=== PATIENT | male | born 1945 | race Caucasian/White ===

== ENCOUNTER → 2016-09-13 | Outpatient (CLI) | payer OTHER ==
[2016-09-13 15:53] LABS: CH 30.1; CHCM 33.3; HCT 44.8 % (39.0-53.0); HDW 2.58; HGB 14.9 gm/dL (13.0-17.5); MCH 30.2 pg (25.0-35.0); MCHC 33.2 g/dL (31.0-37.0); MCV 90.8 fL (80.0-100.0); RBC 4.94 m/uL (4.30-5.90); RDW 14.5 % (11.5-15.5); WBC 6.9 k/uL (3.8-10.6)
[2016-09-13 15:56] LABS: Appearance,Urine Clear (Clear); Bilirubin,Urine Negative (Negative); Glucose,Urine (UA) Negative (Negative); Ketones,Urine Negative (Negative); Leukocyte Esterase,Urine Negative (Negative); Nitrite,Urine Negative (Negative); PH, Urine 6.5 (5.0-8.0); Protein,Urine Negative (Negative); Specific Gravity,Urine 1.007 (1.001-1.035); UA Billing (MACRO vs. MICRO) CHEM; Urobilinogen,Urine <2.0 mg/dL (<2.0)
[2016-09-13 16:02] LABS: ALT 33 U/L (21-72); AST 19 U/L (17-59); Alkaline Phosphatase 97 U/L (38-126); Anion Gap 12 mmol/L; Blood Urea Nitrogen 21 mg/dL (9-20); Calcium 9.4 mg/dL (8.4-10.2); Carbon Dioxide 25 mmol/L (22-30); Chloride 103 mmol/L (98-107); Glucose 197 mg/dL (74-99); Non-African American GFR(MDRD) >60 (>60 ml/min/1.73 sqM); Potassium 4.1 mmol/L (3.5-5.1); Sodium 140 mmol/L (137-145); Total Bilirubin 1.5 mg/dL (0.2-1.3); Total Protein 6.8 g/dL (6.3-8.2)
[2016-09-13 16:03] LABS: Prothrombin Time 19.3 sec (9.0-12.0)
== END | disposition home or self-care (01) ==
LOC: LABPAT 14:56
PROVIDERS: ATTEND Orthopaedic Surgery
DX: Z01.810 Encounter for preprocedural cardiovascular examination (principal); Z01.812 Encounter for preprocedural laboratory examination; Z79.01 Long term (current) use of anticoagulants
CPT/HCPCS: 80053; 81003; 85027; 85610; 85730; 87070

== ENCOUNTER 2016-09-19 06:07 | Inpatient (IN) | payer OTHER ==
[2016-09-12 16:26] VITALS: BMI 34.8
[~2016-09-19 06:07] MED LIST: ACETAMINOPHEN TAB 500 MG TAB PO ONE; LIDOCAINE 1% 20 ML VIAL (10MG/ML) FOR IV START INTRADERMA PRN; MELOXICAM 7.5 MG TAB PO ONE; ONDANSETRON 4 MG/2 ML VIAL IVP ONE; TRANEXAMIC ACID 1,000 MG in SODIUM CHLORIDE 0.9% 100 ML IVPB ONE
[2016-09-19] MEDS: LACTATED RINGERS 1,000 ML IV SCH (07:02)
[2016-09-19 07:17] LABS: Glucose,Whole Blood 110 mg/dL (75-99)
[2016-09-19 07:25] LABS: INR 1.2 (<1.2); Prothrombin Time 11.9 sec (9.0-12.0)
[2016-09-19] MEDS ORDERED: SODIUM CHLORIDE 0.9% 100 ML BAG ONE (07:34)
[2016-09-19] MEDS: ceFAZolin 2 GM in SODIUM CHLORIDE 0.9% 100 ML IVPB ONE ×2 (07:34→07:45)
[2016-09-19] MEDS ORDERED: MIDAZOLAM 2 MG/2 ML VIAL ONE (07:34)
[2016-09-19] MEDS ORDERED: TRANEXAMIC ACID 1,000 MG/10 ML VIAL ONE (07:34)
[2016-09-19] MEDS ORDERED: ROCURONIUM BROMIDE 10 MG/ML 10 ML VIAL IV ONE (07:34)
[2016-09-19] MEDS ORDERED: fentaNYL (PF) 50 MCG/ML 2 ML AMP ONE (07:34)
[2016-09-19] MEDS ORDERED: SUCCINYLCHOLINE CHLORIDE 100 MG/5 ML SYR IV ONE (07:34)
[2016-09-19] MEDS ORDERED: PROPOFOL 10 MG/ML 20 ML VIAL IV ONE (07:34)
[2016-09-19] MEDS ORDERED: GLYCOPYRROLATE 0.2 MG/ML 2 ML VIAL ONE (07:34)
[2016-09-19] MEDS ORDERED: NEOSTIGMINE 1 MG/ML 10 ML VIAL ONE (07:34)
[2016-09-19] MEDS ORDERED: ceFAZolin 3,000 MG in SODIUM CHLORIDE 0.9% IRRIGATIO 3,000 ML IRRIGATION ONE (08:14)
[2016-09-19] MEDS: ROPIVACAINE 246.25 MG, EPINEPHrine 0.5 MG, KETOROLAC 30 MG, cloNIDine HCL/PF 80 MCG, WA... MISCELLANE ONE ×10 (08:15→09:27)
--- NOTE | 2016-09-19 09:30 | XR ---
FLUOROSCOPY 42 seconds of fluoroscopy time were utilized during right anterior hip replacement. 2 images document the procedure.
--- NOTE | 2016-09-19 09:32 | P.OP ---
Date of Procedure: 09/19/16 Preoperative Diagnosis: Severe osteoarthritis right hip Postoperative Diagnosis: Severe osteoarthritis right hip Procedure(s) Performed: Right total hip arthroplasty with a direct anterior approach Implants: Barraza and nephew Polarstem size 2 standard Barraza [employer] Nephew R3, 3 hole acetabular shell, 54 mm Barraza [employer] Nephew reflection 6.5 mm cancellus screw, 20 mm 2 [employer]raza [employer]hew R3, XLPE 20 acetabular liner Barraza [employer] Nephew Oxinium femoral head 36 m, +0 All components were press-fit. The articulation is ceramic on polyethylene. Anesthesia: GETA Surgeon: Pavan Tabares [employer] #1: Shakira Burnett Estimated Blood Loss (ml): 250 (125 mL returned with Cell Saver) Pathology: other (Femoral head) Condition: stable Disposition: PACU Indications for Procedure: After failure of conservative treatment we discussed the surgical and nonsurgical treatment options at length. Patient wishes to proceed with a total hip arthroplasty with a direct anterior approach. Complications specific to this procedure were discussed at length, including but not limited to infection, leg length discrepancy, dislocation, and nerve injury. Patient is aware of all these complications and informed consent was obtained Operative Findings: The operative findings are consistent with severe osteoarthritis of the right hip Description of Procedure: Patient was seen and evaluated in the preoperative area, consent was reviewed, and the surgical site was marked with a skin marker. Patient was then brought to the operating room and given prophylactic antibiotics intravenously. 1 g of Tranexamic acid was also given. A general anesthetic was administered by the anesthesia department. The patient was then placed on the Benedicta table with the bony prominences well-padded. The hip area was then prepped and draped in usual sterile fashion. A universal timeout was then performed, which confirmed the patient's name, surgical site, ALLERGIES, and procedure being performed. Next the incision site was located at 1 cm distal and 1 cm lateral to the anterior superior iliac spine. The skin and subcutaneous tissues were sharply incised. Incision was carefully dissected down to the fascia overlying the tensor fascia tera muscle. This fascia was then incised in line with the incision. Next, using blunt finger dissection, the tensor fascia tera muscle was dissected off its investing fascia. The muscle was then carefully retracted laterally with a cobra retractor over the lateral neck of the femur. Next, the circumflex vessels were identified and cauterized using the AquaMantis device. The anterior hip capsule was then exposed. The capsule was then opened and an inverted T fashion. Cobra retractors were then placed intracapsularly. The proximal femur was then visualized. The femoral neck was then osteotomized appropriate level above the lesser trochanter. Small amount of traction was placed with the Benedicta table. A small wedge of bone was then removed from the remaining femoral head. Next, using a corkscrew femoral head was easily removed from the acetabulum. On gross visual inspection, the femoral head had complete loss of articular cartilage in multiple periarticular osteophytes. Attention was then turned to the acetabulum. the acetabulum was exposed and any remaining labrum was excised. Sequential reaming of the acetabulum was performed using fluoroscopic guidance. When the appropriate size was reached, a trial was then placed. The position and fit of the trial was checked with fluoroscopy. The trial was then removed. Then, using fluoroscopic guidance, the final implant was impacted at 20 of anteversion and 40 of abduction, and fully seated in the acetabulum. 2 screws were then placed in the acetabulum. Again fluoroscopy was used to check position of the screws. Next, the liner was then impacted, with a 20 elevated liner located in the anterior superior quadrant. Component locking was confirmed. Attention was then directed to the femur. With the aid of the Benedicta table, the femur was externally rotated to approximately 130, extended, and abducted under the opposite leg. A side hook was then placed under the proximal femur, and the side hook elevator was used to elevate the proximal femur. Retractors were then placed. A capsular release was performed, as well as a release of the conjoined tendon, which afforded excellent visualization of the proximal femur. Next, a box osteotome was used to lateralize the proximal femur. A production hand was then used to locate the femoral canal. Sequential broaching was then performed with appropriate size which afforded excellent fixation in the proximal femur. A trial was then placed with appropriate head and neck, and the hip was gently reduced with the aid of the Benedicta table. Fluoroscopy was then used to check position of the components, as well as to ensure equal leg lengths. The hip was then gently dislocated and the trials were then removed. Final implants were then impacted and the hip was again reduced. Final fluoroscopic x-rays confirmed that the components were in anatomic position, as well as equal leg lengths. The hip was also taken through range of motion, and found to be stable. The hip was then copiously irrigated with antibiotic solution with pulsatile lavage. The hip was then irrigated with Irrisept solution. The soft tissues were then injected with a ropivacaine solution, which consisted of 246.25 mg of ropivacaine, 0.5 mg of epinephrine, 30 mg of Toradol, 80 g of clonidine, and 48.45 mL of sterile water, for a total of 100 mL of fluid injected. A second dose of 1 g of Tranexamic acid was also given. the fascia was then closed with 2-0 strata fix suture. The subcutaneous tissue was closed with 3-0 Vicryl. The subcuticular tissue was closed with 3-0 strata fix suture. The skin was then closed with Dermabond tape. The patient was then transferred to the recovery room in stable condition. The geriatric nurse assistant ANA ROSA Key was required due to the complexity of surgery, and the need for skilled surgical tech for positioning, draping, exposure, retraction, and closure of the wound.
[2016-09-19] MEDS ORDERED: LACTATED RINGERS 1,000 ML IV ONE (09:38)
[2016-09-19] MEDS ORDERED: DIAZEPAM 5 MG TAB PO PRN ×2 (09:53)
[2016-09-19] MEDS ORDERED: NALOXONE 0.4 MG/ML 1 ML VIAL IV PRN (09:53)
[2016-09-19] MEDS ORDERED: HYDROmorphone 1 MG/ML 1 ML SYRINGE IVP PRN ×2 (09:53)
[2016-09-19] MEDS ORDERED: HYDROcodone/APAP 5-325MG 1 EACH TAB PO PRN (09:53)
[2016-09-19] MEDS ORDERED: MAGNESIUM HYDROXIDE 2,400 MG/10 ML CUP PO PRN (09:53)
[2016-09-19] MEDS ORDERED: ONDANSETRON 4 MG/2 ML VIAL IVP PRN (09:53)
[2016-09-19] MEDS ORDERED: hydrOXYzine PAMOATE 25 MG CAP PO PRN (09:53)
[2016-09-19] MEDS: HYDROmorphone 1 MG/ML 1 ML SYRINGE IVP ONE ×4 (10:02→10:35)
[2016-09-19 10:27] LABS: Glucose,Whole Blood 173 mg/dL (75-99)
--- NOTE | 2016-09-19 10:29 | XR ---
EXAMINATION TYPE: XR Hip Limited RT DATE OF EXAM ORDERED: 09/19/2016 HISTORY: Right hip arthroplasty. COMPARISON: None. FINDINGS: A right arthroplasty has been performed. Prosthetic elements appear in good position. Ther e is some subcutaneous air present. IMPRESSION: STATUS POST RIGHT ARTHROPLASTY.
[2016-09-19] MEDS ORDERED: HYDROmorphone 1 MG/ML 1 ML SYRINGE IVP ONE (10:45)
[2016-09-19] MEDS: HYDROmorphone 1 MG/ML 1 ML SYRINGE IVP PRN ×2 (14:44→17:46)
[2016-09-19 16:28] LABS: Glucose,Whole Blood 176 mg/dL (75-99)
[2016-09-19] MEDS: INSULIN LISPRO (humaLOG) 300 UNIT/3 ML VIAL SQ SCH ×2 (17:41→21:16)
[2016-09-19] MEDS ORDERED: SENNOSIDES-DOCUSATE SODIUM 1 EACH TAB PO PRN (18:09)
[2016-09-19] MEDS ORDERED: ONDANSETRON 4 MG TAB PO PRN (18:09)
[2016-09-19] MEDS ORDERED: ALBUTEROL NEBULIZED 2.5 MG/3 ML INHALATION PRN (18:09)
[2016-09-19] MEDS ORDERED: LOPERAMIDE 2 MG CAP PO PRN (18:09)
[2016-09-19] MEDS: ceFAZolin 2 GM in SODIUM CHLORIDE 0.9% 100 ML IVPB SCH (19:14)
[2016-09-19 19:58] LABS: Glucose,Whole Blood 111 mg/dL (75-99)
[2016-09-19] MEDS: SYMBICORT 160-4.5 MCG INHALER INHALATION SCH (20:33)
[2016-09-19] MEDS: CHOLECALCIFEROL 1,000 UNIT TAB PO SCH (21:03)
[2016-09-19] MEDS: LOSARTAN 50 MG TAB PO SCH (21:04)
[2016-09-19] MEDS: FINASTERIDE 5 MG TAB PO SCH (21:04)
[2016-09-19] MEDS: METOPROLOL SUCCINATE (ER) 50 MG TAB.ER.24H PO SCH (21:05)
[2016-09-19] MEDS: POTASSIUM CHLORIDE ER 10 MEQ TAB.ER.PRT PO SCH (21:05)
[2016-09-19] MEDS: SENNOSIDES-DOCUSATE SODIUM 1 EACH TAB PO SCH (21:06)
[2016-09-19] MEDS: SIMETHICONE 80 MG CHEWABLE PO SCH (21:06)
[2016-09-19] MEDS: METHOCARBAMOL 500 MG TAB PO SCH (21:06)
[2016-09-19] MEDS: TERAZOSIN 5 MG CAP PO SCH (21:06)
[2016-09-19] MEDS: busPIRone HCl 10 MG TAB PO SCH (21:07)
[2016-09-19] MEDS: PREGABALIN 50 MG CAP PO SCH (21:11)
[2016-09-19] MEDS: INSULIN GLARGINE 100 UNIT/ML 10 ML VIAL SQ SCH (21:15)
[2016-09-19] MEDS: HYDROcodone/APAP 5-325MG 1 EACH TAB PO PRN (21:20)
[2016-09-19] MEDS: PRAVASTATIN SODIUM 80 MG TAB PO SCH (22:22)
[2016-09-20] MEDS: ceFAZolin 2 GM in SODIUM CHLORIDE 0.9% 100 ML IVPB SCH (02:39)
[2016-09-20] MEDS: HYDROcodone/APAP 5-325MG 1 EACH TAB PO PRN ×4 (04:45→22:48)
[2016-09-20] MEDS: LACTATED RINGERS 1,000 ML IV SCH (07:09)
[2016-09-20 07:29] LABS: Glucose,Whole Blood 138 mg/dL (75-99)
[2016-09-20 08:05] LABS: Basophils % (A) 0 %; CH 30.3; CHCM 33.8; Eosinophils # (A) 0.1 k/uL (0-0.7); Eosinophils % (A) 1 %; HCT 36.1 % (39.0-53.0); HDW 2.48; HGB 12.3 gm/dL (13.0-17.5); Luc # (Auto) 0.15; Luc % (Auto) 2; Lymphocytes # (A) 0.8 k/uL (1.0-4.8); Lymphocytes % (A) 11 %; MCH 30.7 pg (25.0-35.0); MCHC 34.1 g/dL (31.0-37.0); MCV 90.2 fL (80.0-100.0); Mean Platelet Volume 7.4; Monocytes # (A) 0.5 k/uL (0-1.0); Monocytes % (A) 6 %; Neutrophils # (A) 5.9 k/uL (1.3-7.7); Neutrophils % (A) 80 %; RDW 15.2 % (11.5-15.5); WBC 7.4 k/uL (3.8-10.6); WBC (Perox) 7.27
[2016-09-20] MEDS: SYMBICORT 160-4.5 MCG INHALER INHALATION SCH ×2 (08:15→20:32)
[2016-09-20] MEDS: SODIUM CHLORIDE 0.9% 1,000 ML IV SCH ×3 (08:57→17:19)
[2016-09-20] MEDS: glipiZIDE 10 MG TAB PO SCH ×3 (08:57→17:17)
[2016-09-20] MEDS: CHOLECALCIFEROL 1,000 UNIT TAB PO SCH ×2 (08:58→21:28)
[2016-09-20] MEDS: busPIRone HCl 10 MG TAB PO SCH ×3 (08:58→21:32)
[2016-09-20] MEDS: ENOXAPARIN 40 MG/0.4 ML SYRINGE SQ SCH (08:59)
[2016-09-20] MEDS: FOLIC ACID 1 MG TAB PO SCH (08:59)
[2016-09-20] MEDS: FUROSEMIDE 20 MG TAB PO SCH (08:59)
[2016-09-20] MEDS: POTASSIUM CHLORIDE ER 10 MEQ TAB.ER.PRT PO SCH ×2 (09:00→21:30)
[2016-09-20] MEDS: METHOCARBAMOL 500 MG TAB PO SCH ×3 (09:00→21:32)
[2016-09-20] MEDS: MULTIVITAMINS, THERA 1 EACH TAB PO SCH (09:00)
[2016-09-20] MEDS: SIMETHICONE 80 MG CHEWABLE PO SCH ×3 (09:01→21:32)
[2016-09-20] MEDS: TRIAMTERENE-HCTZ 37.5-25MG 1 EACH TAB PO SCH (09:01)
[2016-09-20] MEDS: TERAZOSIN 5 MG CAP PO SCH ×3 (09:07→21:32)
[2016-09-20] MEDS: INSULIN LISPRO (humaLOG) 300 UNIT/3 ML VIAL SQ SCH ×4 (09:09→21:56)
[2016-09-20] MEDS: PREGABALIN 50 MG CAP PO SCH ×3 (09:14→21:39)
--- NOTE | 2016-09-20 09:35 | P.PN ---
Subjective Principal diagnosis: Status post right total hip arthroplasty This is a 70-year-old male who is status post right total hip arthroplasty. This is postoperative day #1. Patient was seen at bedside. Patient states he has been up and walking multiple times today. Patient states his pain is under control. Patient denies any calf tenderness, numbness, tingling or weakness. Objective - Vital Signs Vital signs: Vital Signs Temp 98.4 F 09/20/16 07:00 Pulse 84 09/20/16 07:00 Resp 16 09/20/16 07:00 BP 151/77 09/20/16 07:00 Pulse Ox 94 L 09/20/16 07:00 Intake & Output 09/19/16 09/20/16 09/20/16 18:59 06:59 18:59 Intake Total 2881 820 Output Total 250 800 Balance 2631 20 Weight 103.873 kg Intake: IV 1601 Lactated Ringers 1,000 ml 200 @ 20 mls/hr IV .Q24H MARY ANN Rx#:[id number] Intake, IV Titration 820 Amount Sodium Chloride 0.9% 1, 720 000 ml @ 60 mls/hr IV . [id number] MARY ANN Rx#:[id number] ceFAZolin 2 gm In Sodium 100 Chloride 0.9% 100 ml @ 100 mls/hr IVPB Q8HR MARY ANN Rx#:[id number] Oral 1280 Output: Urine 800 Estimated Blood Loss 250 Other: Voiding Method Indwelling Catheter - Exam Vital signs are stable. Patient is in no acute distress and is alert and oriented 3. Calf is soft and nontender. Incision is clean, dry, and intact. Neurovascular status intact. Patient has full foot and ankle motion. - Labs CBC & Chem 7: 09/20/16 07:27 Labs: Abnormal Lab Results - Last 24 Hours (Table) 09/19/16 09/19/16 09/19/16 Range/Units 10:25 16:27 19:56 RBC (4.30-5.90) m/uL Hgb (13.0-17.5) gm/dL Hct (39.0-53.0) % Lymphocytes # (1.0-4.8) k/uL POC Glucose (mg/dL) 173 H 176 H 111 H (75-99) mg/dL 09/20/16 09/20/16 Range/Units 07:08 07:27 RBC 4.00 L (4.30-5.90) m/uL Hgb 12.3 L (13.0-17.5) gm/dL Hct 36.1 L (39.0-53.0) % Lymphocytes # 0.8 L (1.0-4.8) k/uL POC Glucose (mg/dL) 138 H (75-99) mg/dL Assessment and Plan (1) S/P total hip arthroplasty Status: Acute (2) Primary osteoarthritis of right hip Status: Acute Plan: Continue routine postop care. Continue antocoagulation per medicine. Weightbearing as tolerated with a walker Daily dressing changes, keep incision clean and dry Possible discharge home tomorrow.
[2016-09-20 09:52] LABS: Hemoglobin A1C 6.8 % (4.2-6.1)
[2016-09-20 11:52] LABS: Glucose,Whole Blood 182 mg/dL (75-99)
[2016-09-20] MEDS: HYDROmorphone 1 MG/ML 1 ML SYRINGE IVP PRN ×2 (11:52→20:21)
[2016-09-20 12:47] LABS: INR 1.3 (<1.2); Prothrombin Time 12.5 sec (9.0-12.0)
--- NOTE | 2016-09-20 13:04 | CONS ---
DATE OF SERVICE: 09/19/2016 REASON FOR CONSULTATION: Advice regarding atrial fibrillation and other medical issues requested by Dr. Tabares. HISTORY OF PRESENT ILLNESS: This 70-year-old gentleman with past medical history of atrial fibrillation, asthma, history of COPD, history CVA, TIA, history of diabetes mellitus, history of DVT, history of GERD, hypertension, hyperlipidemia, history of DJD, history anxiety and depression being followed by Dr. Turner in the outpatient setting admitted with right total hip joint arthroplasty. There is no history of any fever or rigors. No history of headache, loss of consciousness or seizure. Patient was taking Coumadin previously, but currently INR is 1.2. Patient is on Lovenox also. PAST MEDICAL HISTORY: Atrial fibrillation, asthma, chest pain, CHF, COPD, CVA, TIA, diabetes mellitus, hypertension, DVT, GERD. The home medications are reviewed, which include: 1. Fentanyl patch 37 mcg per hour. 2. Ultram 50 mg p.o. t.i.d. 3. Glucotrol 10 mg a.c. t.i.d. 4. Buspirone 20 mg p.o. t.i.d. 5. Coumadin 5 mg Monday, Monday, . 6. Coumadin 7.5 mg Monday, Monday, Monday, Monday. 7. Triamterene 1 tablet p.o. daily. 8. Terazosin 5 mg p.o. t.i.d. 9. Mylicon 80 mg p.o. t.i.d. 10. Senna 1 tablet b.i.d. p.r.n. 11. Lyrica 50 mg p.o. t.i.d. 12. Pravachol 80 mg q.h.s. 13. K-tab ER 10 mEq p.o. b.i.d. 14. Protonix 40 mg daily. 15. Zofran 4 mg b.i.d. p.r.n. 16. Multivitamins 1 p.o. daily . 17. Toprol XL 50 mg q.h.s. 18. Robaxin 500 mg p.o. t.i.d. 19. Cozaar 50 mg q.h.s. 20. Imodium A-D 2 mg p.o. q.i.d. p.r.n. 21. Lantus 22 units subcu q.h.s. 22. Lasix 20 mg p.o. daily. 23. Folic acid 1 mg p.o. daily. 24. Proscar 5 mg p.o. q.h.s. 25. Lovenox 100 mg p.o. b.i.d. 26. Vitamin D3, 2000 b.i.d. 27. Trixaicin 1 application daily p.r.n. 28. Symbicort 160/4.5 two puffs b.i.d. 29. Ventolin HFA 1 to 2 puffs q.i.d. p.r.n. Allergies are LISINOPRIL. FAMILY HISTORY: No history of heart disease or strokes in the family. SOCIAL HISTORY: No history of smoking. No history of alcohol intake. REVIEW OF SYSTEMS: EENT: No diminished hearing or diminished vision. CARDIOVASCULAR SYSTEM: No angina or palpitations. RESPIRATORY: No cough or hemoptysis. GI: No nausea, vomiting, or diarrhea. : No dysuria. NERVOUS SYSTEM: No numbness or weakness. ALLERGY/IMMUNOLOGY: No asthma or hayfever. MUSCULOSKELETAL: As mentioned earlier. HEMATOLOGY/ONCOLOGY: No history of anemia. ENDOCRINE: As mentioned earlier. CONSTITUTIONAL: As mentioned earlier. DERMATOLOGY: Negative. RHEUMATOLOGY: As mentioned earlier. PSYCHIATRY: As mentioned earlier. PHYSICAL EXAMINATION: Patient is alert and oriented x3. Pulse is 85, blood pressure 146/79, respirations 18, temperature is normal, pulse ox 94% on room air. HEENT: Conjunctivae normal. Oral mucosa moist. NECK: No jugular venous distention. No carotid bruit. No lymph node enlargement. CARDIOVASCULAR SYSTEM: S1 and S2 muffled. No S3, no S4. RESPIRATORY: Breath sounds diminished at the bases. No rhonchi, no crackles. ABDOMEN: Soft, nontender. No mass palpable. LEGS: Status post right hip arthroplasty. NERVOUS SYSTEM: Higher function as mentioned earlier. Moves a 4 limbs No focal motor or sensory deficits. LYMPHATICS: No lymphadenopathy of the neck, axillae or groin. SKIN: No ulcers, rashes or bleeding. Labs are glucose 111. The INR is 1.2. The previous labs are normal CBC and chemistry also showed a glucose 111. Bilirubin was 1.5. ASSESSMENT: 1. Status post right total hip joint arthroplasty. 2. Diabetes mellitus type 2. 3. Atrial fibrillation, rate controlled, chronic, intermittent. 4. History of asthma. 5. History of congestive heart failure. 6. History of chronic obstructive pulmonary disease. 7. History of cerebrovascular accident, transient ischemia attack. 8. History of deep venous thrombosis. 9. History of gastroesophageal reflux disease. 10. Hyperlipidemia. 11. Hypertension. 12. History of degenerative joint disease. 13. History of prostate disorder. 14. History of pulmonary embolism. 15. History of sleep apnea, CPAP, BiPAP. 16. History of bowel resection. 17. History of colostomy. 18. History of anxiety, depression. RECOMMENDATION AND DISCUSSION: In this 70-year-old gentleman who presented with multiple complex medical issues, will monitor the patient closely. Continue the current medications. Continue symptomatic treatment. Otherwise, at this time I would recommend to continue with Coumadin and as well as Lovenox overlapping. Will continue to monitor. Monitor blood sugars closely. Continue the rest of the medications. Prognosis guarded because of multiple complex medical issues and further recommendations to follow. DARIAD
[2016-09-20 16:20] LABS: Glucose,Whole Blood 133 mg/dL (75-99)
[2016-09-20] MEDS ORDERED: WARFARIN 7.5 MG TAB PO ONE (18:00)
[2016-09-20] MEDS ORDERED: PANTOPRAZOLE 40 MG TABLET PO SCH (18:00)
[2016-09-20] MEDS: LOSARTAN 50 MG TAB PO SCH (21:29)
[2016-09-20] MEDS: FINASTERIDE 5 MG TAB PO SCH (21:29)
[2016-09-20] MEDS: SENNOSIDES-DOCUSATE SODIUM 1 EACH TAB PO SCH (21:30)
[2016-09-20] MEDS: METOPROLOL SUCCINATE (ER) 50 MG TAB.ER.24H PO SCH (21:30)
[2016-09-20] MEDS: PRAVASTATIN SODIUM 80 MG TAB PO SCH (21:30)
[2016-09-20] MEDS: INSULIN GLARGINE 100 UNIT/ML 10 ML VIAL SQ SCH (21:39)
[2016-09-20 21:52] LABS: Glucose,Whole Blood 167 mg/dL (75-99)
[2016-09-21 03:14] VITALS: TEMP 98.3
--- NOTE | 2016-09-21 08:12 | PN ---
DATE OF SERVICE: 09/20/2016 This 70-year-old gentleman who was admitted after right total hip joint arthroplasty improving significantly. No chest pain or palpitation. No fever. On exam, alert and oriented x3. Pulse 84, blood pressure 151/77, respirations 16 , temperature 98.0, pulse ox 94% on room air. HEENT: Conjunctivae normal. NECK: No jugular venous distention. CARDIOVASCULAR: S1 and S2 muffled. RESPIRATORY: Breath sounds diminished at the bases. No rhonchi. No crackles. ABDOMEN: Soft. Obese. Nontender. LEGS: Status post surgery. NERVOUS SYSTEM: No focal deficits. LABS: Accu-Cheks are noted. INR is 1.3. Hemoglobin A1c is 6.8. ASSESSMENT: 1. Status post right total hip joint arthroplasty. 2. Diabetes mellitus type 2. 3. Atrial fibrillation, rate controlled, chronic intermittent. 4. History of asthma. 5. History of congestive heart failure. 6. History of chronic obstructive pulmonary disease. 7. Multiple medical issues. RECOMMENDATION AND DISCUSSION: In this 70-year-old gentleman who presented with multiple complex medical issues, will monitor the patient closely. Continue the current medications. Continue symptomatic treatment. Monitor blood sugars closely. Otherwise, I would also recommend Lovenox and a combination of Coumadin also. may be used. Guarded prognosis because of the multiple complex medical issues. Further recommendations to follow. Will monitor the INR. MTDD
[2016-09-21] MEDS: LACTATED RINGERS 1,000 ML IV SCH (08:15)
[2016-09-21] MEDS: FOLIC ACID 1 MG TAB PO SCH (08:20)
[2016-09-21] MEDS: INSULIN LISPRO (humaLOG) 300 UNIT/3 ML VIAL SQ SCH ×2 (08:20→12:44)
[2016-09-21] MEDS: TERAZOSIN 5 MG CAP PO SCH (08:20)
[2016-09-21] MEDS: TRIAMTERENE-HCTZ 37.5-25MG 1 EACH TAB PO SCH (08:20)
[2016-09-21] MEDS: CHOLECALCIFEROL 1,000 UNIT TAB PO SCH (08:20)
[2016-09-21] MEDS: glipiZIDE 10 MG TAB PO SCH ×2 (08:21→12:44)
[2016-09-21] MEDS: POTASSIUM CHLORIDE ER 10 MEQ TAB.ER.PRT PO SCH (08:21)
[2016-09-21] MEDS: FUROSEMIDE 20 MG TAB PO SCH (08:21)
[2016-09-21] MEDS: METHOCARBAMOL 500 MG TAB PO SCH (08:21)
[2016-09-21] MEDS: ENOXAPARIN 40 MG/0.4 ML SYRINGE SQ SCH (08:21)
[2016-09-21] MEDS: busPIRone HCl 10 MG TAB PO SCH (08:21)
[2016-09-21] MEDS: MULTIVITAMINS, THERA 1 EACH TAB PO SCH (08:21)
[2016-09-21 08:27] LABS: Glucose,Whole Blood 168 mg/dL (75-99)
--- NOTE | 2016-09-21 08:48 | P.DS ---
Providers Date of admission: 09/19/16 06:07 Expected date of discharge: 09/21/16 Attending physician: Pavan Tabares Consults: 09/19/16 09:53 Consult Physician Routine Consulting Provider: Lizzie Garcia Consult Reason/Comments: medical management and anticoagulation Do you want consulting provider notified?: Yes Primary care physician: Pavan Turner - Discharge Diagnosis(es) (1) S/P total hip arthroplasty Current Visit: Yes Status: Acute (2) Primary osteoarthritis of right hip Current Visit: Yes Status: Acute Hospital Course: This is a 70-year-old male with known history of degenerative arthritis of the right hip. The patient presents for evaluation. After discussion and consideration patient elects to proceed with total hip arthroplasty. The patient is seen preoperatively by Dr. Tabares and cleared for surgery. Patient is admitted to [facility] on 09/19/2016 for total hip arthroplasty. The procedures performed without complication or sequelae. The patient is doing well postoperatively. Labs and vital signs are stable on day of discharge. On day of discharge patient's hip incision is healing well. There is minimal erythema. There is no drainage noted at this time. There is minimal soft tissue swelling to the hip and thigh. Patient has full foot and ankle motion without difficulty or pain. Neurovascular status to the right lower extremity is intact. Patient is discharged home in good condition.Please see med rec for accurate list of home medications. Plan - Discharge Summary New Discharge Prescriptions: No Action fentaNYL 25MCG/HR PATCH [Duragesic 25MCG/HR] 1 patch TRANSDERM Q48H Warfarin Sodium [Coumadin] 5 mg PO SUWETH Warfarin Sodium 7.5 mg PO MOTUFRSA Capsaicin Cream [Trixaicin Cream] 1 applic TOPICAL DAILY PRN PRN Reason: Pain traMADol HCL [Ultram] 50 mg PO TID Terazosin HCl 5 mg PO TID Simethicone Chew [Mylicon Chew] 80 mg PO TID Pregabalin [Lyrica] 50 mg PO TID Pravastatin Sodium [Pravachol] 80 mg PO HS Potassium Chloride [K-Tab ER] 10 meq PO BID Pantoprazole Sodium 40 mg PO DAILY@1800 Ondansetron HCl [Zofran] 4 mg PO BID PRN PRN Reason: Nausea Metoprolol Succinate [Toprol XL] 50 mg PO HS Methocarbamol [Robaxin] 500 mg PO TID Losartan [Cozaar] 50 mg PO HS Loperamide HCl [Imodium A-D] 2 mg PO QID PRN PRN Reason: Diarrhea Triamterene/Hydrochlorothiazid [Triamterene-Hctz 37.5-25 mg Tb] 1 tab PO DAILY glipiZIDE [Glucotrol] 10 mg PO AC-TID fentaNYL 12MCG/HR PATCH [Duragesic 12MCG/HR] 1 patch TRANSDERM Q48H Furosemide [Lasix] 20 mg PO DAILY Finasteride [Proscar] 5 mg PO HS Enoxaparin [Lovenox] 100 mg SQ Q12H Sennosides/Docusate Sodium [Docusate Sodium-Senna Tablet] 1 tab PO BID PRN PRN Reason: Constipation busPIRone HCL 20 mg PO TID Cholecalciferol [Vitamin D3] 2,000 unit PO BID Budesonide-Formot 160-4.5 Mcg [Symbicort 160-4.5 Mcg Inhaler] 2 puff INHALATION RT-BID Albuterol Inhaler [Ventolin Hfa Inhaler] 1 - 2 puff INHALATION RT-QID PRN PRN Reason: Shortness Of Breath Insulin Glargine,Hum.rec.anlog [Lantus Solostar] 22 unit SQ HS Folic Acid 1 mg PO DAILY Multivitamins, Thera [Multivitamin (formulary)] 1 tab PO DAILY Discharge Medication List Albuterol Inhaler [Ventolin Hfa Inhaler] 1 - 2 puff INHALATION RT-QID PRN [History] Budesonide-Formot 160-4.5 Mcg [Symbicort 160-4.5 Mcg Inhaler] 2 puff INHALATION RT-BID 09/12/16 [History] Capsaicin Cream [Trixaicin Cream] 1 applic TOPICAL DAILY PRN 09/12/16 [History] Cholecalciferol [Vitamin D3] 2,000 unit PO BID 09/12/16 [History] Enoxaparin [Lovenox] 100 mg SQ Q12H 09/12/16 [History] Finasteride [Proscar] 5 mg PO HS 09/12/16 [History] Folic Acid 1 mg PO DAILY 09/12/16 [History] Furosemide [Lasix] 20 mg PO DAILY 09/12/16 [History] Insulin Glargine,Hum.rec.anlog [Lantus Solostar] 22 unit SQ HS 09/12/16 [History ] Loperamide HCl [Imodium A-D] 2 mg PO QID PRN 09/12/16 [History] Losartan [Cozaar] 50 mg PO HS 09/12/16 [History] Methocarbamol [Robaxin] 500 mg PO TID 09/12/16 [History] Metoprolol Succinate [Toprol XL] 50 mg PO HS 09/12/16 [History] Multivitamins, Thera [Multivitamin (formulary)] 1 tab PO DAILY 09/12/16 [History ] Ondansetron HCl [Zofran] 4 mg PO BID PRN 09/12/16 [History] Pantoprazole Sodium 40 mg PO DAILY@1800 09/12/16 [History] Potassium Chloride [K-Tab ER] 10 meq PO BID 09/12/16 [History] Pravastatin Sodium [Pravachol] 80 mg PO HS 09/12/16 [History] Pregabalin [Lyrica] 50 mg PO TID 09/12/16 [History] Sennosides/Docusate Sodium [Docusate Sodium-Senna Tablet] 1 tab PO BID PRN 09/12 [History] Simethicone Chew [Mylicon Chew] 80 mg PO TID 09/12/16 [History] Terazosin HCl 5 mg PO TID 09/12/16 [History] Triamterene/Hydrochlorothiazid [Triamterene-Hctz 37.5-25 mg Tb] 1 tab PO DAILY 09/12/16 [History] Warfarin Sodium 7.5 mg PO MOTUFRSA 09/12/16 [History] Warfarin Sodium [Coumadin] 5 mg PO SUWETH 09/12/16 [History] busPIRone HCL 20 mg PO TID 09/12/16 [History] fentaNYL 12MCG/HR PATCH [Duragesic 12MCG/HR] 1 patch TRANSDERM Q48H 09/12/16 [ History] fentaNYL 25MCG/HR PATCH [Duragesic 25MCG/HR] 1 patch TRANSDERM Q48H 09/12/16 [ History] glipiZIDE [Glucotrol] 10 mg PO AC-TID 09/12/16 [History] traMADol HCL [Ultram] 50 mg PO TID 09/12/16 [History] Follow up Appointment(s)/Referral(s): Pavan Tabares DO [Doctor of Osteopathic Medicine] - 2 Weeks Activity/Diet/Wound Care/Special Instructions: [facility]: [phone] Weightbearing as tolerated with walker May shower after 2 days if no drainage from the incision Follow-up with [facility] in 2 weeks with any questions or concerns Discharge Disposition: HOME WITH HOME HEALTH SERVICES
[2016-09-21] MEDS: SYMBICORT 160-4.5 MCG INHALER INHALATION SCH (09:26)
[2016-09-21 10:33] VITALS: BP 155/75; PULSE 90; RESP 14
[2016-09-21] MEDS: SIMETHICONE 80 MG CHEWABLE PO SCH (10:46)
[2016-09-21] MEDS: PREGABALIN 50 MG CAP PO SCH (10:46)
[2016-09-21] MEDS: HYDROcodone/APAP 5-325MG 1 EACH TAB PO PRN (11:46)
[2016-09-21 12:43] LABS: Glucose,Whole Blood 162 mg/dL (75-99)
--- NOTE | 2016-09-22 07:21 | PN ---
DATE OF SERVICE: 09/21/2016 This 70-year-old gentleman who was admitted with right hip arthroplasty, improved significantly. No chest pain or palpitations. No fever. On exam, alert and oriented x3. Pulse 90, blood pressure 155/75, respirations 14 , temperatures 98.2, pulse ox 95% on room air. HEENT: Conjunctivae normal. NECK: No jugular venous distention. CARDIOVASCULAR: S1 and S2 muffled. RESPIRATORY: Breath sounds diminished at the bases. No rhonchi, no crackles. ABDOMEN: Soft, nontender. LEGS: Status post surgery. NERVOUS SYSTEM: No focal deficits. LABS: WBC 7.4, hemoglobin 12.3. INR 1.3. ASSESSMENT: 1. Status post right total hip joint arthroplasty. 2. Diabetes mellitus type 2. 3. Anemia, normocytic. 4. Atrial fibrillation. 5. History of asthma. RECOMMENDATIONS AND DISCUSSION: Recommend to continue current medications, continue symptomatic treatment. Resume the home medications. Further recommendations per Orthopedic Surgery. Further recommendations to follow. MTDD
== END 2016-09-21 14:35 | disposition home health service (06) | DRG 470 ==
LOC: 2ORMAIN 06:07 → 3SUR 10:00
PROVIDERS: ADMIT Orthopaedic Surgery; ATTEND Orthopaedic Surgery
PROC: 0SR904A Replacement of Right Hip Joint with Ceramic on Polyethylene Synthetic Substitute, Uncemented, Open Approach (ICD-10-PCS; principal; 2016-09-19 07:30)
DX: M16.11 Unilateral primary osteoarthritis, right hip (principal); I48.2 Chronic atrial fibrillation; I11.0 Hypertensive heart disease with heart failure; I50.9 Heart failure, unspecified; E10.9 Type 1 diabetes mellitus without complications; D64.9 Anemia, unspecified; J44.9 Chronic obstructive pulmonary disease, unspecified; E78.5 Hyperlipidemia, unspecified; E66.9 Obesity, unspecified; Z85.038 Personal history of other malignant neoplasm of large intestine; Z79.899 Other long term (current) drug therapy; Z79.4 Long term (current) use of insulin; Z79.01 Long term (current) use of anticoagulants; Z85.828 Personal history of other malignant neoplasm of skin; Z82.49 Family history of ischemic heart disease and other diseases of the circulatory system; G47.30 Sleep apnea, unspecified; K21.9 Gastro-esophageal reflux disease without esophagitis; Z86.711 Personal history of pulmonary embolism; Z86.718 Personal history of other venous thrombosis and embolism; Z86.73 Personal history of transient ischemic attack (TIA), and cerebral infarction without residual deficits; Z79.84 Long term (current) use of oral hypoglycemic drugs
CPT/HCPCS: 73501; 83036; 85025; 85610; 86850; 86891; 86900; 86901; 88300; 94640

== ENCOUNTER → 2016-12-05 | Outpatient (CLI) | payer OTHER ==
[2016-12-05 17:36] LABS: Appearance,Urine Clear (Clear); Bilirubin,Urine Negative (Negative); Glucose,Urine (UA) Negative (Negative); Ketones,Urine Negative (Negative); Leukocyte Esterase,Urine Negative (Negative); Nitrite,Urine Negative (Negative); Protein,Urine Negative (Negative); Specific Gravity,Urine 1.006 (1.001-1.035); UA Billing (MACRO vs. MICRO) CHEM; Urobilinogen,Urine <2.0 mg/dL (<2.0)
[2016-12-05 17:40] LABS: INR 3.1 (<1.2); Partial Thromboplastin Time 27.4 sec (22.0-30.0); Prothrombin Time 30.5 sec (9.0-12.0)
== END | disposition home or self-care (01) ==
LOC: LABPAT 16:06
PROVIDERS: ATTEND Orthopaedic Surgery
DX: Z01.812 Encounter for preprocedural laboratory examination (principal)
CPT/HCPCS: 36415; 81003; 85610; 85730; 87070

== ENCOUNTER 2016-12-13 05:50 | Inpatient (IN) | payer OTHER ==
[2016-12-05 17:01] VITALS: BMI 35.3
[~2016-12-13 05:50] MED LIST changes: +DEXAMETHASONE SOD PHOSPHATE 10 MG/ML 1 ML VIAL IV ONE; -LIDOCAINE 1% 20 ML VIAL (10MG/ML) FOR IV START INTRADERMA PRN; +ceFAZolin 2 GM in SODIUM CHLORIDE 0.9% 100 ML IVPB ONE
[2016-12-13 06:24] LABS: Glucose,Whole Blood 108 mg/dL (75-99)
[2016-12-13] MEDS: LACTATED RINGERS 1,000 ML IV SCH (06:24)
[2016-12-13 06:39] LABS: INR 1.3 (<1.2)
[2016-12-13 06:40] LABS: Prothrombin Time 12.6 sec (9.0-12.0)
[2016-12-13] MEDS ORDERED: NEOSTIGMINE 1 MG/ML 10 ML VIAL ONE (07:22)
[2016-12-13] MEDS ORDERED: ceFAZolin 3,000 MG in SODIUM CHLORIDE 0.9% IRRIGATIO 3,000 ML IRRIGATION ONE (07:22)
[2016-12-13] MEDS ORDERED: fentaNYL (PF) 50 MCG/ML 2 ML AMP ONE (07:22)
[2016-12-13] MEDS ORDERED: SUCCINYLCHOLINE CHLORIDE 100 MG/5 ML SYR IV ONE (07:22)
[2016-12-13] MEDS ORDERED: PROPOFOL 10 MG/ML 20 ML VIAL IV ONE (07:22)
[2016-12-13] MEDS ORDERED: METOPROLOL TARTRATE 5 MG/5 ML VIAL IVP ONE (07:22)
[2016-12-13] MEDS ORDERED: VECURONIUM 10 MG VIAL IV ONE (07:22)
[2016-12-13] MEDS ORDERED: SODIUM CHLORIDE 0.9% IRRIG 1,000 ML BTL IRRIGATION ONE (07:22)
[2016-12-13] MEDS ORDERED: TRANEXAMIC ACID 1,000 MG/10 ML VIAL ONE (07:22)
[2016-12-13] MEDS ORDERED: SODIUM CHLORIDE 0.9% 100 ML BAG ONE (07:22)
[2016-12-13] MEDS ORDERED: HEPARIN SODIUM,PORCINE 10,000 UNIT/ML 1 ML VIAL ONE (07:22)
[2016-12-13] MEDS ORDERED: LIDOCAINE 1% INJ 10MG/ML (20 ML MDV) ONE (07:22)
[2016-12-13] MEDS ORDERED: HYDROmorphone (PF) 1 MG/ML ONE (07:22)
[2016-12-13] MEDS ORDERED: ePHEDrine SULFATE/0.9% NACL/PF 50 MG/5 ML SYRINGE IV ONE (07:22)
[2016-12-13] MEDS ORDERED: MIDAZOLAM 2 MG/2 ML VIAL ONE (07:22)
[2016-12-13] MEDS ORDERED: GLYCOPYRROLATE 0.2 MG/ML 2 ML VIAL ONE (07:22)
[2016-12-13] MEDS ORDERED: NALOXONE 0.4 MG/ML 1 ML VIAL IV PRN (07:27)
[2016-12-13] MEDS ORDERED: ONDANSETRON 4 MG/2 ML VIAL IVP PRN (07:27)
[2016-12-13] MEDS ORDERED: DIAZEPAM 5 MG TAB PO PRN ×2 (07:27)
[2016-12-13] MEDS ORDERED: hydrOXYzine PAMOATE 25 MG CAP PO PRN (07:27)
[2016-12-13] MEDS ORDERED: MAGNESIUM HYDROXIDE 2,400 MG/10 ML CUP PO PRN (07:27)
[2016-12-13] MEDS ORDERED: HYDROmorphone 0.5 MG/0.5 ML SYRINGE IVP PRN ×3 (07:27)
[2016-12-13] MEDS: ROPIVACAINE 246.25 MG, EPINEPHrine 0.5 MG, KETOROLAC 30 MG, cloNIDine HCL/PF 80 MCG, WA... MISCELLANE ONE ×10 (07:58→08:56)
[2016-12-13] MEDS ORDERED: LACTATED RINGERS 1,000 ML IV ONE (08:40)
[2016-12-13] MEDS ORDERED: MELOXICAM 7.5 MG TAB PO SCH (09:00)
--- NOTE | 2016-12-13 09:14 | FL ---
EXAMINATION TYPE: FL guidance operating room, XR Hip Limited LT DATE OF EXAM: 12/13/2016 CLINICAL HISTORY: Left hip pain TECHNIQUE: Fluoroscopy. COMPARISON: None. FINDINGS/IMPRESSION: Fluoroscopic guidance was provided during procedure performed by Dr. Tabares. A total of 1 minute and 6 seconds of fluoroscopic time was utilized during the procedure and 2 spot images was acquired.
--- NOTE | 2016-12-13 09:18 | P.OP ---
Date of Procedure: 12/13/16 Preoperative Diagnosis: Severe osteoarthritis left hip Postoperative Diagnosis: Severe osteoarthritis left hip Procedure(s) Performed: Left total hip arthroplasty with a direct anterior approach Implants: Barraza and nephew Polarstem size 2 standard Barraza [employer] Nephew R3, 3 hole acetabular shell, 52 mm [employer]raza [employer] Nephew reflection 6.5 mm cancellus screw, 20 mm 2 [employer]raza [employer]hew R3, XLPE 20 acetabular liner Barraza [employer] Nephew Oxinium femoral head 36 m, +0 All components were press-fit. The articulation is Oxinium on polyethylene. Anesthesia: GETA Surgeon: Pavan Tabares Dealer Account Manager #1: Shakira Burnett Estimated Blood Loss (ml): 450 (192 mL returned with Cell Saver) Pathology: other (Femoral head) Condition: stable Disposition: PACU Indications for Procedure: After failure of conservative treatment we discussed the surgical and nonsurgical treatment options at length. Patient wishes to proceed with a total hip arthroplasty with a direct anterior approach. Complications specific to this procedure were discussed at length, including but not limited to infection, leg length discrepancy, dislocation, and nerve injury. Patient is aware of all these complications and informed consent was obtained Operative Findings: The operative findings are consistent with severe osteoarthritis of the left hip Description of Procedure: Patient was seen and evaluated in the preoperative area, consent was reviewed, and the surgical site was marked with a skin marker. Patient was then brought to the operating room and given prophylactic antibiotics intravenously. 1 g of Tranexamic acid was also given. A general anesthetic was administered by the anesthesia department. The patient was then placed on the [place] table with the bony prominences well-padded. The hip area was then prepped and draped in usual sterile fashion. A universal timeout was then performed, which confirmed the patient's name, surgical site, ALLERGIES, and procedure being performed. Next the incision site was located at 1 cm distal and 1 cm lateral to the anterior superior iliac spine. The skin and subcutaneous tissues were sharply incised. Incision was carefully dissected down to the fascia overlying the tensor fascia tera muscle. This fascia was then incised in line with the incision. Next, using blunt finger dissection, the tensor fascia tera muscle was dissected off its investing fascia. The muscle was then carefully retracted laterally with a cobra retractor over the lateral neck of the femur. Next, the circumflex vessels were identified and cauterized using the AquaMantis device. The anterior hip capsule was then exposed. The capsule was then opened and an inverted T fashion. Cobra retractors were then placed intracapsularly. The proximal femur was then visualized. The femoral neck was then osteotomized appropriate level above the lesser trochanter. Small amount of traction was placed with the [place] table. A small wedge of bone was then removed from the remaining femoral head. Next, using a corkscrew femoral head was easily removed from the acetabulum. On gross visual inspection, the femoral head had complete loss of articular cartilage in multiple periarticular osteophytes. Attention was then turned to the acetabulum. the acetabulum was exposed and any remaining labrum was excised. Sequential reaming of the acetabulum was performed using fluoroscopic guidance. When the appropriate size was reached, a trial was then placed. The position and fit of the trial was checked with fluoroscopy. The trial was then removed. Then, using fluoroscopic guidance, the final implant was impacted at 20 of anteversion and 40 of abduction, and fully seated in the acetabulum. 2 screws were then placed in the acetabulum. Again fluoroscopy was used to check position of the screws. Next, the liner was then impacted, with a 20 elevated liner located in the anterior superior quadrant. Component locking was confirmed. Attention was then directed to the femur. With the aid of the [place] table, the femur was externally rotated to approximately 130, extended, and abducted under the opposite leg. A side hook was then placed under the proximal femur, and the side hook elevator was used to elevate the proximal femur. Retractors were then placed. A capsular release was performed, as well as a release of the conjoined tendon, which afforded excellent visualization of the proximal femur. Next, a box osteotome was used to lateralize the proximal femur. A boat crew deck hand was then used to locate the femoral canal. Sequential broaching was then performed with appropriate size which afforded excellent fixation in the proximal femur. A trial was then placed with appropriate head and neck, and the hip was gently reduced with the aid of the [place] table. Fluoroscopy was then used to check position of the components, as well as to ensure equal leg lengths. The hip was then gently dislocated and the trials were then removed. Final implants were then impacted and the hip was again reduced. Final fluoroscopic x-rays confirmed that the components were in anatomic position, as well as equal leg lengths. The hip was also taken through range of motion, and found to be stable. The hip was then copiously irrigated with antibiotic solution with pulsatile lavage. The hip was then irrigated with Irrisept solution. The soft tissues were then injected with a ropivacaine solution, which consisted of 246.25 mg of ropivacaine, 0.5 mg of epinephrine, 30 mg of Toradol, 80 g of clonidine, and 48.45 mL of sterile water, for a total of 100 mL of fluid injected. A second dose of 1 g of Tranexamic acid was also given. the fascia was then closed with 2-0 strata fix suture. The subcutaneous tissue was closed with 3-0 Vicryl. The subcuticular tissue was closed with 3-0 strata fix suture. The skin was then closed with Dermabond glue and a silver aqua cell dressing.. The patient was then transferred to the recovery room in stable condition. The material assistant ANA ROSA Key was required due to the complexity of surgery, and the need for skilled medical surgical tech for positioning, draping, exposure, retraction, and closure of the wound.
[2016-12-13] MEDS: HYDROmorphone 0.5 MG/0.5 ML SYRINGE IVP PRN ×4 (09:46→10:06)
--- NOTE | 2016-12-13 09:50 | XR ---
EXAMINATION TYPE: XR Hip Limited LT DATE OF EXAM: 12/13/2016 CLINICAL HISTORY: Left hip pain and osteoarthritis. TECHNIQUE: Single AP portable view of left hip is obtained immediately postoperatively. COMPARISON: Left FINDINGS: Metallic hardware from left hip arthroplasty is seen and appears satisfactory in alignment and position. There is evidence of recent surgery with subcutaneous gas noted laterally. Numerous s urgical clips are seen within the pelvis and left hemiabdomen. Visualized bowel gas is nonenlarged. IMPRESSION: Metallic hardware from left hip arthroplasty is satisfactory in position.
[2016-12-13 10:01] LABS: Glucose,Whole Blood 194 mg/dL (75-99)
[2016-12-13] MEDS: HYDROcodone/APAP 5-325MG 1 EACH TAB PO PRN ×2 (13:41→19:37)
[2016-12-13] MEDS: ceFAZolin 2 GM in SODIUM CHLORIDE 0.9% 100 ML IVPB SCH (16:17)
[2016-12-13] MEDS: SODIUM CHLORIDE 0.9% 1,000 ML IV SCH (17:06)
[2016-12-13] MEDS ORDERED: WARFARIN 5 MG TAB PO ONE (18:00)
[2016-12-13 20:31] LABS: Glucose,Whole Blood 193 mg/dL (75-99)
[2016-12-13] MEDS ORDERED: METOPROLOL SUCCINATE (ER) 25 MG TAB.ER.24H PO SCH (21:00)
[2016-12-13] MEDS ORDERED: SENNOSIDES-DOCUSATE SODIUM 1 EACH TAB PO SCH (21:00)
[2016-12-13] MEDS ORDERED: PRAVASTATIN SODIUM 80 MG TAB PO SCH (21:00)
[2016-12-13] MEDS ORDERED: FINASTERIDE 5 MG TAB PO SCH (21:00)
[2016-12-13] MEDS ORDERED: LOSARTAN 50 MG TAB PO SCH (21:00)
--- NOTE | 2016-12-13 21:14 | P.CONS ---
History of Present Illness - Reason for Consult Consult date: 12/13/16 Medical management of multiple medical problems - Chief Complaint Left total hip pyeloplasty - History of Present Illness Patient is a 71-year-old male with a known history of Atrial Fibrillation on anti-coagulation, Asthma, HX COLON CA-2012 radiation & chemo rec., HAS colostomy ON LT; SKIN CA, Chest Pain / Angina, Heart Failure, COPD, CVA/TIA, Diabetes Mellitus, Deep Vein Thrombosis (DVT), GERD/Reflux, Hyperlipidemia, Hypertension, Osteoarthritis (OA), Prostate Disorder, Pulmonary Embolus (PE), Sleep Apnea/CPAP/BIPAP and other multiple medical problems including morbid obesity admitted to the hospital for left total knee arthroplasty. Patient does have history of previous right hip arthroplasty. Patient tolerated the procedure well. Currently denied any complaints of worsening pain. Patient is able to sit on the side of the bed. No fever no chills. No complaints of chest pain or short of breath. No nausea vomiting or abdominal pain. Pain is well controlled with pain medications. Patient was started back on Coumadin INR level is 1.3 Review of Systems Constitutional: Patient denies any fever or chills . No generalized weakness or weight loss. Abdomen: Patient denied nausea vomiting and diarrhea and abdominal pain. Cardiovascular: Patient denies any chest pain or short of breath no palpitations. Respiratory: patient denied any cough is from production. No shortness of breath Neurologic: Patient denied any numbness or tingling headache. Musculoskeletal: Patient denies any complaints of joint swelling or deformity. Skin: Negative Psychiatric: Negative Endocrine: No heat or cold intolerance. No recent weight gain. Genitourinary: No dysuria or hematuria. All other 14 point ROS negative except the above Past Medical History Past Medical History: Atrial Fibrillation, Asthma, Cancer, Chest Pain / Angina, Heart Failure, COPD, CVA/TIA, Diabetes Mellitus, Deep Vein Thrombosis (DVT), GERD/Reflux, Hyperlipidemia, Hypertension, Osteoarthritis (OA), Prostate Disorder, Pulmonary Embolus (PE), Sleep Apnea/CPAP/BIPAP Additional Past Medical History / Comment(s): HX COLON CA-2012 radiation & chemo rec., HAS colostomy ON LT; SKIN CA. HX TIA'S. BPH. USES BIPAP. OCC EDEMA IN BLE.DVT & PE 1999 History of Any Multi-Drug Resistant Organisms: None Reported Past Surgical History: Bowel Resection, Hernia Repair, Pacemaker Additional Past Surgical History / Comment(s): COLOSTOMY. HERNIA X3. EXC SKIN CA. 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 [employer] DUAL CHAMBER PACEMAKER SERIAL# [id number], GENERATOR CHANGE 06/2016 AT [facility]. Bilateral hip replacements 2016 Past Anesthesia/Blood Transfusion Reactions: No Reported Reaction Additional Past Anesthesia/Blood Transfusion Reaction / Comm: no hx blood transfusion Type of Cardiac Device: Permanent Pacemaker Device Placement Date:: 06-29-16 Past Psychological History: Anxiety, Depression Smoking Status: Never smoker Past Alcohol Use History: None Reported Additional Past Alcohol Use History / Comment(s): CHEWED TOBACCO ON/OFF - 2009. Past Drug Use History: None Reported - Past Family History Mother Family Medical History: No Reported History Medications and Allergies Home Medications Medication Instructions Recorded Confirmed Type Albuterol Inhaler [Ventolin Hfa 1 - 2 puff INHALATION RT-QID PRN 09/12/16 History Inhaler] Budesonide-Formot 160-4.5 Mcg 2 puff INHALATION RT-BID 09/12/16 12/13/16 History [Symbicort 160-4.5 Mcg Inhaler] Capsaicin Cream [Trixaicin Cream] 1 applic TOPICAL DAILY PRN 09/12/16 12/13/16 History Cholecalciferol [Vitamin D3] 2,000 unit PO BID 09/12/16 12/13/16 History Enoxaparin [Lovenox] 100 mg SQ Q12H 09/12/16 12/13/16 History Finasteride [Proscar] 5 mg PO HS 09/12/16 12/13/16 History Folic Acid 1 mg PO DAILY 09/12/16 12/13/16 History Furosemide [Lasix] 20 mg PO DAILY 09/12/16 12/13/16 History Insulin Glargine,Hum.rec.anlog 22 unit SQ HS 09/12/16 12/13/16 History [Lantus Solostar] Losartan [Cozaar] 50 mg PO HS 09/12/16 12/13/16 History Methocarbamol [Robaxin] 500 mg PO TID 09/12/16 12/13/16 History Multivitamins, Thera [Multivitamin 1 tab PO DAILY 09/12/16 12/13/16 History (formulary)] Ondansetron HCl [Zofran] 4 mg PO BID PRN 09/12/16 12/13/16 History Pantoprazole Sodium 40 mg PO DAILY@1800 09/12/16 12/13/16 History Potassium Chloride [K-Tab ER] 10 meq PO BID 09/12/16 12/13/16 History Pravastatin Sodium [Pravachol] 80 mg PO HS 09/12/16 12/13/16 History Pregabalin [Lyrica] 50 mg PO QID 09/12/16 12/13/16 History Simethicone Chew [Mylicon Chew] 80 mg PO TID 09/12/16 12/13/16 History Terazosin HCl 5 mg PO TID 09/12/16 12/13/16 History Triamterene/Hydrochlorothiazid 1 tab PO DAILY 09/12/16 12/13/16 History [Triamterene-Hctz 37.5-25 mg Tb] Warfarin Sodium 7.5 mg PO MOTUFRSA 09/12/16 12/13/16 History Warfarin Sodium [Coumadin] 5 mg PO SUWETH 09/12/16 12/13/16 History busPIRone HCL 20 mg PO TID 09/12/16 12/13/16 History glipiZIDE [Glucotrol] 10 mg PO AC-TID 09/12/16 12/13/16 History traMADol HCL [Ultram] 50 mg PO TID 09/12/16 12/13/16 History Metoprolol Succinate (ER) [Toprol 25 mg PO HS 12/13/16 12/13/16 History Xl] Allergies Allergy/AdvReac Type Severity Reaction Status Date / Time lisinopril AdvReac Cough Verified 12/13/16 06:09 Physical Exam Vitals: Vital Signs Temp Pulse Pulse Resp BP BP Pulse Ox 12/13/16 15:00 98.3 F 70 12 131/77 95 12/13/16 12:15 67 16 142/66 97 12/13/16 12:00 78 16 143/61 93 L 12/13/16 11:45 81 16 167/87 97 12/13/16 11:30 83 16 140/66 96 12/13/16 11:15 67 16 139/57 95 12/13/16 11:00 67 16 155/72 96 12/13/16 10:45 85 16 149/70 95 12/13/16 10:30 97.9 F 79 16 147/69 94 L 12/13/16 10:15 77 16 146/65 96 12/13/16 10:00 75 16 154/70 96 12/13/16 09:45 85 18 143/67 96 12/13/16 09:31 99.2 F 92 18 168/77 98 12/13/16 06:11 97.9 F 73 16 138/58 95 Intake and Output 12/13/16 12/13/16 12/13/16 06:59 14:59 22:59 Intake Total 200 1131 Output Total 450 50 Balance 200 681 -50 Intake: IV 200 1001 Intake, IV Titration 130 Amount Sodium Chloride 0.9% 1, 130 000 ml @ 65 mls/hr IV . [id number] [facility] Rx#:[id number] Output: Urine 50 Estimated Blood Loss 450 Other: Voiding Method Urinal PHYSICAL EXAMINATION: Patient is lying in the bed comfortably, no acute distress, awake alert and oriented. Morbidly obese. HEENT: Normocephalic. Neck is supple. Pupils reactive. Nostrils clear. Oral cavity is moist. Ears reveal no drainage. Neck reveals no JVD, carotid bruits, or thyromegaly. CHEST EXAMINATION: Trachea is central. Symmetrical expansion. Decreased air entry bilaterally basally. CARDIAC: Normal S1, S2 with no gallops. No murmurs ABDOMEN: Soft. Bowel sounds normal. No organomegaly. No abdominal bruits. Colostomy bag in place Extremities: 1+ edema. No clubbing or cyanosis Neurologically awake, alert, oriented x3 with well-coordinated movements. No focal deficits noted Skin: No rash or skin lesions. Psychiatric: Operative. Nonsuicidal Musculoskeletal: No joint swelling or deformity. Normal range of motion. Results Labs: Abnormal Lab Results - Last 24 Hours (Table) 12/13/16 12/13/16 12/13/16 Range/Units 06:15 06:22 09:59 PT 12.6 H (9.0-12.0) sec INR 1.3 H (<1.2) POC Glucose (mg/dL) 108 H 194 H (75-99) mg/dL Assessment and Plan Assessment: #1 status post left total hip arthroplasty due to osteoarthritis severe #2 COPD. Not in exacerbation #3 morbid obesity with a BMI level of 35.4 #4 diabetes type 2 [id number] at home. #5 history of DVT/PE #6 atrial fibrillation on anti-coagulation with Coumadin #7 hypertension controlled #8 hyperlipidemia #9 history of CHF chronic with possible diastolic dysfunction #10 history of pacemaker placement #11 history of colon cancer status post partial colectomy. Currently on colostomy back. #12 GERD, history of CVA/TIA, chest pain and other multiple medical problems Plan: Patient be continued on pain medications and bowel regimen. Continue with insulin sliding scale along with home medications. Continue with blood pressure medications and other home medications. incentive spirometry. We'll follow closely. Coumadin monitoring. DVT prophylaxis patient is already on Coumadin for atrial fibrillation. Further recommendations based on the clinical course. Thank you for your consult Time with Patient: Greater than 30
[2016-12-13] MEDS: SYMBICORT 160-4.5 MCG INHALER INHALATION SCH (21:32)
[2016-12-13] MEDS: CHOLECALCIFEROL 1,000 UNIT TAB PO SCH (22:21)
[2016-12-13] MEDS: INSULIN LISPRO (humaLOG) 300 UNIT/3 ML VIAL SQ SCH (22:22)
[2016-12-13] MEDS: POTASSIUM CHLORIDE ER 10 MEQ TAB.ER.PRT PO SCH (22:23)
[2016-12-13] MEDS: METHOCARBAMOL 500 MG TAB PO SCH (22:24)
[2016-12-13] MEDS: busPIRone HCl 10 MG TAB PO SCH (22:24)
[2016-12-13] MEDS: TERAZOSIN 5 MG CAP PO SCH (22:24)
[2016-12-13] MEDS: PREGABALIN 50 MG CAP PO SCH (22:24)
[2016-12-14] MEDS: ceFAZolin 2 GM in SODIUM CHLORIDE 0.9% 100 ML IVPB SCH (01:31)
[2016-12-14] MEDS ORDERED: HYDROcodone/APAP 5-325MG 1 EACH TAB ONE (03:28)
[2016-12-14 07:16] LABS: Glucose,Whole Blood 132 mg/dL (75-99)
[2016-12-14 07:22] LABS: Basophils % (A) 0 %; CH 29.1; CHCM 31.7; Eosinophils # (A) 0.1 k/uL (0-0.7); Eosinophils % (A) 1 %; HCT 38.1 % (39.0-53.0); HDW 2.59; HGB 11.7 gm/dL (13.0-17.5); Hypochromasia Slight; Luc # (Auto) 0.26; Luc % (Auto) 3; Lymphocytes # (A) 0.9 k/uL (1.0-4.8); Lymphocytes % (A) 12 %; MCH 28.4 pg (25.0-35.0); MCHC 30.8 g/dL (31.0-37.0); MCV 92.2 fL (80.0-100.0); Mean Platelet Volume 6.8; Monocytes # (A) 0.6 k/uL (0-1.0); Monocytes % (A) 8 %; Neutrophils # (A) 5.9 k/uL (1.3-7.7); Neutrophils % (A) 76 %; RBC 4.13 m/uL (4.30-5.90); RDW 14.3 % (11.5-15.5); WBC 7.7 k/uL (3.8-10.6); WBC (Perox) 7.44
[2016-12-14 07:23] LABS: INR 1.3 (<1.2); Prothrombin Time 12.8 sec (9.0-12.0)
[2016-12-14] MEDS: METHOCARBAMOL 500 MG TAB PO SCH ×2 (08:24→15:16)
[2016-12-14] MEDS: TERAZOSIN 5 MG CAP PO SCH ×2 (08:24→15:17)
[2016-12-14] MEDS: PREGABALIN 50 MG CAP PO SCH ×2 (08:24→13:21)
[2016-12-14] MEDS: glipiZIDE 10 MG TAB PO SCH ×2 (08:25→13:21)
[2016-12-14] MEDS: busPIRone HCl 10 MG TAB PO SCH ×2 (08:25→15:16)
[2016-12-14] MEDS: POTASSIUM CHLORIDE ER 10 MEQ TAB.ER.PRT PO SCH (08:25)
[2016-12-14] MEDS: INSULIN LISPRO (humaLOG) 300 UNIT/3 ML VIAL SQ SCH ×2 (08:26→13:21)
[2016-12-14] MEDS: LACTATED RINGERS 1,000 ML IV SCH (08:26)
[2016-12-14] MEDS: CHOLECALCIFEROL 1,000 UNIT TAB PO SCH (08:27)
[2016-12-14] MEDS: SODIUM CHLORIDE 0.9% 1,000 ML IV SCH ×2 (08:27→15:20)
[2016-12-14] MEDS ORDERED: TRIAMTERENE-HCTZ 37.5-25MG 1 EACH TAB PO SCH (09:00)
[2016-12-14] MEDS ORDERED: FUROSEMIDE 20 MG TAB PO SCH (09:00)
[2016-12-14] MEDS: SYMBICORT 160-4.5 MCG INHALER INHALATION SCH (09:05)
[2016-12-14 09:29] VITALS: RESP 16
[2016-12-14] MEDS: HYDROcodone/APAP 5-325MG 1 EACH TAB PO PRN ×2 (09:39→15:15)
--- NOTE | 2016-12-14 09:45 | P.DS ---
Providers Date of admission: 12/13/16 05:50 Expected date of discharge: 12/14/16 Attending physician: Pavan Tabares Consults: 12/13/16 07:27 Consult Physician Routine Consulting Provider: Lizzie Garcia Consult Reason/Comments: medical management and anticoagulation Do you want consulting provider notified?: Yes Primary care physician: Stated None - Discharge Diagnosis(es) (1) Primary osteoarthritis of left hip Current Visit: Yes Status: Acute (2) S/P total hip arthroplasty Current Visit: No Status: Acute Hospital Course: This is a 71-year-old male with known history of degenerative arthritis of the left hip. The patient presents for evaluation. After discussion and consideration patient elects to proceed with total hip arthroplasty. The patient is seen preoperatively by Dr. Tabares and cleared for surgery. Patient is admitted to [facility] on 12/13/2016 for total hip arthroplasty. The procedures performed without complication or sequelae. The patient is doing well postoperatively. Labs and vital signs are stable on day of discharge. On day of discharge patient's hip incision is healing well. There is minimal erythema. There is no drainage noted at this time. There is minimal soft tissue swelling to the hip and thigh. Patient has full foot and ankle motion without difficulty or pain. Neurovascular status to the left lower extremity is intact. Patient is discharged home in good condition.Please see med rec for accurate list of home medications. Plan - Discharge Summary New Discharge Prescriptions: New HYDROcodone/APAP 5-325MG [[place] 5-325] 1 - 2 tab PO Q4-6H PRN #90 tab PRN Reason: Pain No Action Warfarin Sodium [Coumadin] 5 mg PO SUWETH Warfarin Sodium 7.5 mg PO MOTUFRSA Capsaicin Cream [Trixaicin Cream] 1 applic TOPICAL DAILY PRN PRN Reason: Pain traMADol HCL [Ultram] 50 mg PO TID Terazosin HCl 5 mg PO TID Simethicone Chew [Mylicon Chew] 80 mg PO TID Pregabalin [Lyrica] 50 mg PO QID Pravastatin Sodium [Pravachol] 80 mg PO HS Potassium Chloride [K-Tab ER] 10 meq PO BID Pantoprazole Sodium 40 mg PO DAILY@1800 Ondansetron HCl [Zofran] 4 mg PO BID PRN PRN Reason: Nausea Methocarbamol [Robaxin] 500 mg PO TID Losartan [Cozaar] 50 mg PO HS Triamterene/Hydrochlorothiazid [Triamterene-Hctz 37.5-25 mg Tb] 1 tab PO DAILY glipiZIDE [Glucotrol] 10 mg PO AC-TID Furosemide [Lasix] 20 mg PO DAILY Finasteride [Proscar] 5 mg PO HS Enoxaparin [Lovenox] 100 mg SQ Q12H busPIRone HCL 20 mg PO TID Cholecalciferol [Vitamin D3] 2,000 unit PO BID Budesonide-Formot 160-4.5 Mcg [Symbicort 160-4.5 Mcg Inhaler] 2 puff INHALATION RT-BID Albuterol Inhaler [Ventolin Hfa Inhaler] 1 - 2 puff INHALATION RT-QID PRN PRN Reason: Shortness Of Breath Insulin Glargine,Hum.rec.anlog [Lantus Solostar] 22 unit SQ HS Folic Acid 1 mg PO DAILY Multivitamins, Thera [Multivitamin (formulary)] 1 tab PO DAILY Metoprolol Succinate (ER) [Toprol Xl] 25 mg PO HS Discharge Medication List Albuterol Inhaler [Ventolin Hfa Inhaler] 1 - 2 puff INHALATION RT-QID PRN [History] Budesonide-Formot 160-4.5 Mcg [Symbicort 160-4.5 Mcg Inhaler] 2 puff INHALATION RT-BID 09/12/16 [History] Capsaicin Cream [Trixaicin Cream] 1 applic TOPICAL DAILY PRN 09/12/16 [History] Cholecalciferol [Vitamin D3] 2,000 unit PO BID 09/12/16 [History] Enoxaparin [Lovenox] 100 mg SQ Q12H 09/12/16 [History] Finasteride [Proscar] 5 mg PO HS 09/12/16 [History] Folic Acid 1 mg PO DAILY 09/12/16 [History] Furosemide [Lasix] 20 mg PO DAILY 09/12/16 [History] Insulin Glargine,Hum.rec.anlog [Lantus Solostar] 22 unit SQ HS 09/12/16 [History ] Losartan [Cozaar] 50 mg PO HS 09/12/16 [History] Methocarbamol [Robaxin] 500 mg PO TID 09/12/16 [History] Multivitamins, Thera [Multivitamin (formulary)] 1 tab PO DAILY 09/12/16 [History ] Ondansetron HCl [Zofran] 4 mg PO BID PRN 09/12/16 [History] Pantoprazole Sodium 40 mg PO DAILY@1800 09/12/16 [History] Potassium Chloride [K-Tab ER] 10 meq PO BID 09/12/16 [History] Pravastatin Sodium [Pravachol] 80 mg PO HS 09/12/16 [History] Pregabalin [Lyrica] 50 mg PO QID 09/12/16 [History] Simethicone Chew [Mylicon Chew] 80 mg PO TID 09/12/16 [History] Terazosin HCl 5 mg PO TID 09/12/16 [History] Triamterene/Hydrochlorothiazid [Triamterene-Hctz 37.5-25 mg Tb] 1 tab PO DAILY 09/12/16 [History] Warfarin Sodium 7.5 mg PO MOTUFRSA 09/12/16 [History] Warfarin Sodium [Coumadin] 5 mg PO SUWETH 09/12/16 [History] busPIRone HCL 20 mg PO TID 09/12/16 [History] glipiZIDE [Glucotrol] 10 mg PO AC-TID 09/12/16 [History] traMADol HCL [Ultram] 50 mg PO TID 09/12/16 [History] Metoprolol Succinate (ER) [Toprol Xl] 25 mg PO HS 12/13/16 [History] HYDROcodone/APAP 5-325MG [[place] 5-325] 1 - 2 tab PO Q4-6H PRN #90 tab 12/14/16 [ Rx] Follow up Appointment(s)/Referral(s): Pavan Tabares DO [Doctor of Osteopathic Medicine] - 2 Weeks Activity/Diet/Wound Care/Special Instructions: Weightbearing as tolerated with walker Please take pain medication as prescribed. Please use stool softener along with pain medication. Leave dressing intact. Dressing may be removed by home care nurse in 7 days. May shower with dressing on. Follow-up with [facility] in 2 weeks with any questions or concerns Discharge Disposition: HOME WITH HOME HEALTH SERVICES
[2016-12-14] MEDS ORDERED: FOLIC ACID 1 MG TAB PO SCH (12:00)
[2016-12-14 12:05] LABS: Glucose,Whole Blood 147 mg/dL (75-99)
[2016-12-14 15:36] VITALS: BP 155/78; PULSE 87; TEMP 97.9
[2016-12-14] MEDS ORDERED: TERAZOSIN 1 MG CAP PO SCH (16:32)
--- NOTE | 2016-12-15 17:31 | P.PN ---
Subjective Progress Note Date: 12/14/16 Progress note being dictated for Dr. Perry. Interval history:Patient is a 71-year-old male with a known history of Atrial Fibrillation on anti-coagulation, Asthma, HX COLON CA-2012 radiation & chemo rec., HAS colostomy ON LT; SKIN CA, Chest Pain / Angina, Heart Failure, COPD, CVA/TIA, Diabetes Mellitus, Deep Vein Thrombosis (DVT), GERD/Reflux, Hyperlipidemia, Hypertension, Osteoarthritis (OA), Prostate Disorder, Pulmonary Embolus (PE), Sleep Apnea/CPAP/BIPAP and other multiple medical problems including morbid obesity admitted to the hospital for left total knee arthroplasty. Patient does have history of previous right hip arthroplasty. Patient tolerated the procedure well. Currently denied any complaints of worsening pain. Patient is able to sit on the side of the bed. No fever no chills. No complaints of chest pain or short of breath. No nausea vomiting or abdominal pain. Pain is well controlled with pain medications. Patient was started back on Coumadin INR level is 1.3 12/14/2016. ambulating, tolerating exertion well. Diet intake improving, blood sugars controlled. Anticoagulated on Coumadin with current INR 1.3. Pain better controlled. Denies lightheadedness dizziness or focal deficits. Denies chest pain, palpitations or increasing shortness of breath. Hemoglobin 11.7. Objective - Vital Signs Vital signs: Vital Signs Temp 97.9 F 12/14/16 15:00 Pulse 87 12/14/16 15:00 Resp 16 12/14/16 15:00 BP 155/78 12/14/16 15:00 Pulse Ox 95 12/14/16 15:00 Intake & Output 12/13/16 12/14/16 12/14/16 18:59 06:59 18:59 Intake Total 1131 1520 Output Total 500 200 700 Balance 631 1320 -700 Weight 107.048 kg Intake: IV 1001 Intake, IV Titration 130 620 Amount Sodium Chloride 0.9% 1, 130 520 000 ml @ 65 mls/hr IV . [id number] MARY ANN Rx#:[id number] ceFAZolin 2 gm In Sodium 100 Chloride 0.9% 100 ml @ 100 mls/hr IVPB Q8HR MARY ANN Rx#:[id number] Oral 900 Output: Urine 50 200 700 Estimated Blood Loss 450 Other: Voiding Method Urinal Urinal # Voids 3 - Exam Patient is sitting up in chair comfortably, no acute distress, awake alert and oriented. Morbidly obese. HEENT: Normocephalic. Neck is supple. Pupils reactive. Nostrils clear. Oral cavity is moist. Ears reveal no drainage. Neck reveals no JVD, carotid bruits, or thyromegaly. CHEST EXAMINATION: Trachea is central. Symmetrical expansion. Decreased air entry bilaterally basally. CARDIAC: Normal S1, S2 with no gallops. No murmurs ABDOMEN: Soft. Bowel sounds normal. No organomegaly. No abdominal bruits. Colostomy bag in place, functioning. Extremities: 1+ edema. No clubbing or cyanosis Neurologically awake, alert, oriented x3 with well-coordinated movements. No focal deficits noted Skin: No rash or skin lesions. Psychiatric: Operative. Nonsuicidal Musculoskeletal: No joint swelling or deformity. Normal range of motion. - Labs CBC & Chem 7: 12/14/16 06:53 Labs: Abnormal Lab Results - Last 24 Hours (Table) 12/13/16 12/14/16 12/14/16 Range/Units 20:25 06:47 06:53 RBC 4.13 L (4.30-5.90) m/uL Hgb 11.7 L (13.0-17.5) gm/dL Hct 38.1 L (39.0-53.0) % MCHC 30.8 L (31.0-37.0) g/dL Lymphocytes # 0.9 L (1.0-4.8) k/uL PT 12.8 H (9.0-12.0) sec INR 1.3 H (<1.2) POC Glucose (mg/dL) 193 H (75-99) mg/dL 12/14/16 12/14/16 Range/Units 07:12 11:40 RBC (4.30-5.90) m/uL Hgb (13.0-17.5) gm/dL Hct (39.0-53.0) % MCHC (31.0-37.0) g/dL Lymphocytes # (1.0-4.8) k/uL PT (9.0-12.0) sec INR (<1.2) POC Glucose (mg/dL) 132 H 147 H (75-99) mg/dL Assessment and Plan Assessment: #1 status post left total hip arthroplasty due to osteoarthritis severe #2 COPD. Not in exacerbation #3 morbid obesity with a BMI level of 35.4 #4 diabetes type 2 [id number] at home. #5 history of DVT/PE #6 atrial fibrillation on anti-coagulation with Coumadin #7 hypertension controlled #8 hyperlipidemia #9 history of CHF chronic with possible diastolic dysfunction #10 history of pacemaker placement #11 history of colon cancer status post partial colectomy. Currently on colostomy back. #12 GERD, history of CVA/TIA, chest pain and other multiple medical problems Plan: Plan: Continue on current medication regime ,monitoring and symptomatic treatment. Anticoagulation with Coumadin. Pain management as per orthopedics. Patient is being discharged home today as per orthopedics. Follow-up with PCP in 1 week. Maintain aggressive pulmonary toileting with incentive spirometer, at home. The impression and plan of care has been dictated as directed. : I performed a history and examination of this patient, discussed the same with the dictator. I agree with the dictator's note ,documented as a scribe. Any additional findings or plans will be noted.
== END 2016-12-14 16:36 | disposition home health service (06) | DRG 470 ==
LOC: 2ORMAIN 05:50 → 3SUR 09:40
PROVIDERS: ADMIT Orthopaedic Surgery; ATTEND Orthopaedic Surgery
PROC: 0SRB06A Replacement of Left Hip Joint with Oxidized Zirconium on Polyethylene Synthetic Substitute, Uncemented, Open Approach (ICD-10-PCS; principal; 2016-12-13 07:30)
DX: M16.12 Unilateral primary osteoarthritis, left hip (principal); I11.0 Hypertensive heart disease with heart failure; I48.91 Unspecified atrial fibrillation; I50.32 Chronic diastolic (congestive) heart failure; E11.9 Type 2 diabetes mellitus without complications; E66.01 Morbid (severe) obesity due to excess calories; E78.5 Hyperlipidemia, unspecified; G47.30 Sleep apnea, unspecified; J44.9 Chronic obstructive pulmonary disease, unspecified; K21.9 Gastro-esophageal reflux disease without esophagitis; N40.0 Benign prostatic hyperplasia without lower urinary tract symptoms; Z79.01 Long term (current) use of anticoagulants; Z79.51 Long term (current) use of inhaled steroids; Z79.899 Other long term (current) drug therapy; Z85.038 Personal history of other malignant neoplasm of large intestine; Z85.828 Personal history of other malignant neoplasm of skin; Z86.711 Personal history of pulmonary embolism; Z86.718 Personal history of other venous thrombosis and embolism; Z86.73 Personal history of transient ischemic attack (TIA), and cerebral infarction without residual deficits; Z90.49 Acquired absence of other specified parts of digestive tract; Z93.3 Colostomy status; Z95.0 Presence of cardiac pacemaker; Z96.652 Presence of left artificial knee joint; Z79.84 Long term (current) use of oral hypoglycemic drugs
CPT/HCPCS: 73501; 85025; 85610; 86850; 86891; 86900; 86901; 88305; 88311; 94640

== ENCOUNTER → 2018-09-29 | Outpatient (CLI) | payer OTHER ==
--- NOTE | 2018-09-29 17:04 | PE ---
EXAMINATION TYPE: PET CT fusion skull to thigh DATE OF EXAM: 09/29/2018 COMPARISON: NONE HISTORY: Colon cancer completed chemotherapy August 09, 2018 and radiation treatment in November 2017, o riginally diagnosed 2003 with surgery . TECHNIQUE: Following the intravenous administration of 11.79 mCi of F-18 FDG, whole body images are performed from the skull base to the midthigh. Images are reviewed on the computer in the coronal, a xial, and sagittal planes. Reconstructed rotating images are created on independent workstation and reviewed on the computer. A noncontrast CT is performed in conjunction with the PET scan. SCAN: Subsequent Scan FINDINGS: SKULL BASE AND NECK: No areas of suspicious hypermetabolic uptake. CHEST, MEDIASTINUM, AND HILAR REGION: No areas of suspicious hypermetabolic uptake. ABDOMEN AND PELVIS: Uptake in the bladder is present. Streak artifact from metal hip arthroplasty lico es evaluation of pelvis suboptimal. Abnormal soft tissue presacral space with surgical clips does not show definitive hypermetabolic uptake, presumed postsurgical scarring. There is left lower quadrant colostomy. There is mild uptake throughout the colon without definitive suspicious focal hypermetabol ic uptake. Prominent bilateral groin lymph nodes largest left groin measures 2.3 x 1.7 cm axial image 247 is ametabolic. Lymph node just inferior and lateral to this axial image 247 is subcentimeter bu t shows mild hypermetabolic uptake with Max SUV 4.72. Remainder of abdomen shows no areas of abnormal suspicious hypermetabolic uptake. No discrete liver lesions noted. OSSEOUS STRUCTURES: No areas of suspicious hypermetabolic uptake. OTHER CT: Right internal jugular Mediport catheter terminates in SVC. There is cardiomegaly with smal l to tiny inferior pericardial effusion and multi lead pacemaker/ICD. There is severe three-vessel co ronary artery calcification and/or stents. Moderate calcified plaque aortic arch. Calcification centrally in the liver. Liver is markedly low dense consistent with diffuse fatty infil tration. There is 2.3 cm right adrenal mass effect image 143 which is ametabolic Hounsfield units ave rage 20. Surgical clips and sutures anterior abdominal wall. Some diverticula in the distal colon inc luding ostomy noted. Prominent multilevel spurring in the spine. Correlate for DISH. Moderate to severe calcified plaque o f the abdominal aorta extends into branch vessels IMPRESSION: Extensive postsurgical change without definitive suspicious hypermetabolic uptake to sugg est neoplastic recurrence. Nonspecific groin lymph nodes as detailed above may warrant further clinic al workup based on clinical correlation. Consider correlating with old outside CT and/or PET/CT.
== END ==
LOC: RADPETMAIN 08:14
PROVIDERS: ATTEND Internal Medicine Hematology & Oncology
DX: C18.9 Malignant neoplasm of colon, unspecified (principal); Z98.890 Other specified postprocedural states
CPT/HCPCS: 78815; A9552

== ENCOUNTER → 2019-02-02 | Outpatient (CLI) | payer OTHER ==
--- NOTE | 2019-02-08 16:38 | PE ---
Nuclear medicine PET/CT HISTORY: Colon carcinoma, subsequent Patient received 11.8 mCi F-18 FDG intravenously in delayed scanning was performed from skull base to the mid thighs. Localization and attenuation correction CT scan was performed. Correlation to prior nuclear medicine PET/CT 09/29/2018 Neck and chest: There is no evident cervical or supraclavicular adenopathy. No suspicious hypermetabo lic uptake within the neck. There is no mediastinal, axillary uptake. Adjacent to the right hilar lev el shows a soft tissue mass with associated hypermetabolic uptake, SUV is 4.1, an interval finding, m ass measures approximately 16 mm. There are minimal pleural effusions. No additional lung mass eviden t. The heart is enlarged. There are dense and extensive coronary artery calcifications present. Small amount of pericardial fluid is present. Intracardiac leads are noted. Ascending aorta is aneurysmal at 4.7 cm. Pulmonary artery is enlarged, correlate for pulmonary artery hypertension. ABDOMEN: The right adrenal mass is again noted and shows a similar appearance with mild hypermetaboli c uptake, SUV 3. Metallic density within the liver is again noted. No evident liver mass. Postop rivers ges again noted to the anterior abdominal wall. No retroperitoneal adenopathy or ascites. There is an ostomy in the left lower quadrant. Urinary bladder shows a thickened wall and there is a small focus of air in the nondependent portion, correlate for self-catheterization change. There is extensive abnormal soft tissue in the presacral region which likely has ill-defined borders. There is some minimal peripheral hypermetabolic uptake present, SUV 5.4. Bilateral inguinal adenopat hy is present which is increased in size in the interval, there is associated hypermetabolic uptake b ilaterally, SUV 10.7 on the right, 8.4 the left. Penile uptake also noted incidentally. Osseous structures: Extensive uptake seen at the level of the sacrum, sacrum has a mottled appearance on CT similar to prior left soft tissues adjacent to the sacrum also shows hypermetabolic uptake pos teriorly and anteriorly, SUV 10.1, 5.4 respectively. Bilateral hip arthroplasties cause streak artifa ct within the pelvis. IMPRESSION: Progression of inguinal adenopathy and hypermetabolic uptake, new right lung mass with as sociated hypermetabolic uptake, suspicious findings. Hypermetabolic uptake within the sacrum, circumf erentially within the presacral soft tissue mass as described. Ascending aortic aneurysm. Small peric ardial effusion, cardiomegaly, coronary artery disease, minimal pleural effusions Additional findings above.
== END | disposition home or self-care (01) ==
LOC: RADPETMAIN 10:56
PROVIDERS: ATTEND Internal Medicine Hematology & Oncology
DX: I25.10 Atherosclerotic heart disease of native coronary artery without angina pectoris (principal); I71.2 Thoracic aortic aneurysm, without rupture; R59.0 Localized enlarged lymph nodes; R91.8 Other nonspecific abnormal finding of lung field; I31.3 Pericardial effusion (noninflammatory); J90 Pleural effusion, not elsewhere classified; M79.89 Other specified soft tissue disorders; I51.7 Cardiomegaly; C18.9 Malignant neoplasm of colon, unspecified
CPT/HCPCS: 78815; A9552